=== PATIENT | male | born 1960 | race African-American/Black ===

== ENCOUNTER 2017-07-29 09:28 | Emergency (ER) | payer MEDICAID ==
[~2017-07-29] VITALS: Ht 193 cm; Wt 100.0 kg
[~2017-07-29 09:28] MED LIST: RISPERDAL
[2017-07-29] MEDS ORDERED: ACETAMINOPHEN 325MG TABLET PO ONE (12:15)
[2017-07-29 14:02] VITALS: BP 134/86
== END 2017-07-29 14:22 | disposition home or self-care (01) ==
LOC: ER 10:56
DX: S52.511A Displaced fracture of right radial styloid process, initial encounter for closed fracture (principal); S62.615A Displaced fracture of proximal phalanx of left ring finger, initial encounter for closed fracture; S52.201A Unspecified fracture of shaft of right ulna, initial encounter for closed fracture; E11.9 Type 2 diabetes mellitus without complications; E78.00 Pure hypercholesterolemia, unspecified; I10 Essential (primary) hypertension; W20.8XXA Other cause of strike by thrown, projected or falling object, initial encounter; Y93.89 Activity, other specified; Y92.89 Other specified places as the place of occurrence of the external cause; Y99.8 Other external cause status
CPT/HCPCS: 29105; 29125; 73110; 73130; 99284; A4565

== ENCOUNTER 2019-06-02 16:03 | Emergency (ER) | payer MEDICAID ==
[~2019-06-02] VITALS: Ht 188 cm; Wt 95.0 kg
[2019-06-02] MEDS ORDERED: ONDANSETRON HCL 4MG/2ML INJ IV STA (16:38)
[2019-06-02] MEDS ORDERED: SODIUM CHLORIDE 0.9% 1,000 ML IV ONE (16:38)
[2019-06-02] MEDS ORDERED: KETOROLAC 30MG/ML VIAL IV STA (16:38)
[2019-06-02] MEDS ORDERED: MORPHINE SULFATE 4 MG/ML CPJ (NOT FOR IM USE) IV STA (16:38)
[2019-06-02] MEDS ORDERED: FAMOTIDINE 20MG/2ML VIAL IV ONE (16:45)
[2019-06-02] MEDS ORDERED: MAGNESIUM/ALUMINUM HYDROXIDE/SIMETHICONE 30ML UDC PO ONE (16:45)
[2019-06-02 16:57] LABS: BASOPHILS % 0.4 % (0.0-2.0); EOSINOPHILS % 2.3 % (0.0-5.0); HEMATOCRIT. 40.8 % (42.0-52.0); HEMOGLOBIN. 13.4 g/dL (14.0-18.0); LYMPHOCYTES % 13.2 % (20.0-50.0); MEAN CORPUSCULAR HEMOGLOBIN 30.6 pg (28.0-32.0); MEAN CORPUSCULAR VOLUME 93.7 fL (80.0-94.0); MEAN PLATELET VOLUME 8.4 fl (7.4-10.4); MONOCYTES % 5.7 % (2.0-8.0); NEUTROPHILS % 78.4 % (40.0-76.0); PLATELET 247 x1000/uL (130-400); RED BLOOD CELL COUNT 4.36 mill/uL (4.7-6.1); RED CELL DISTRIBUTION WIDTH 14.9 % (11.6-14.6)
[2019-06-02 17:00] LABS: CHLORIDE 106 mEq/L (98-107)
[2019-06-02 17:03] LABS: INR 1.1; PARTIAL THROMBOPLASTIN TIME 32.9 sec (23.4-31.0); PROTHROMBIN TIME 10.9 sec (9.6-11.0)
[2019-06-02 17:04] LABS: ETHANOL BLOOD 226 mg/dL
[2019-06-02 17:11] VITALS: BP 128/75
== END 2019-06-02 19:09 | disposition home or self-care (01) ==
LOC: ER 16:03
DX: K29.20 Alcoholic gastritis without bleeding (principal); F10.10 Alcohol abuse, uncomplicated; Y90.7 Blood alcohol level of 200-239 mg/100 ml; R07.89 Other chest pain; T51.0X1A Toxic effect of ethanol, accidental (unintentional), initial encounter; Y92.89 Other specified places as the place of occurrence of the external cause; E11.9 Type 2 diabetes mellitus without complications; F17.200 Nicotine dependence, unspecified, uncomplicated; F14.10 Cocaine abuse, uncomplicated; Z91.013 Allergy to seafood
CPT/HCPCS: 36415; 71045; 80053; 80320; 82962; 84484; 85025; 85610; 85730; 93005; 96361; 96374; 96375; 99284; 99406; J1885; J2270; J2405; J3490; J7030; G0480

== ENCOUNTER → 2019-06-20 | Emergency (ER) | payer MEDICAID ==
[~2019-06-20] VITALS: Ht 180.3 cm; Wt 90.0 kg
[2019-06-20 15:16] VITALS: BP 160/97
== END ==
LOC: ER 15:10
DX: H57.89 Other specified disorders of eye and adnexa (principal); Z53.21 Procedure and treatment not carried out due to patient leaving prior to being seen by health care provider